=== PATIENT | male | born 1955 | race Two or more races ===

== ENCOUNTER → 2021-09-26 | Outpatient (CLI) | payer OTHER ==
[2021-09-26 09:45] LABS: Urine WBC None Seen /hpf (0 - 3)
[2021-09-26 09:58] LABS: Urine Bacteria NONE SEEN /hpf (None Seen); Urine Blood Negative /uL (Negative); Urine Specific Gravity 1.014 (1.001-1.035)
[2021-09-26 10:30] LABS: BUN/Creatinine Ratio 17.3; Calcium 9.1 mg/dL (8.5-10.1)
== END | disposition home or self-care (01) ==
LOC: LAB 09:19
DX: F43.10 Post-traumatic stress disorder, unspecified (principal)
CPT/HCPCS: 36415; 80048; 81001; 82306; 82785; 83036; 84153; 84443